=== PATIENT | female | born 1935 | race Two or more races ===

== ENCOUNTER 2019-09-02 09:18 | Emergency (ER) | payer MEDICARE, OTHER ==
[~2019-09-02] VITALS: Ht 162.6 cm; Wt 57.0 kg
[2019-09-02] MEDS ORDERED: LIDOCAINE HCL/EPINEPHRINE 1%-EPI 1:100,000 20 ML VIAL INFIL NR (09:45)
[2019-09-02] MEDS ORDERED: TETANUS, DIPHTHERIA, PERTUSSIS VAC/PF 0.5ML (>7YR OLD) IM ONE (09:45)
[2019-09-02] MEDS ORDERED: LIDOCAINE 1%/EPI 1:100,000 10 ML VIAL IJ ONE (09:45)
[2019-09-02 12:35] VITALS: BP 150/70
== END 2019-09-02 12:42 | disposition home or self-care (01) ==
LOC: ER 09:18
DX: S01.81XA Laceration without foreign body of other part of head, initial encounter (principal); W06.XXXA Fall from bed, initial encounter; Y93.89 Activity, other specified; Y92.013 Bedroom of single-family (private) house as the place of occurrence of the external cause; I10 Essential (primary) hypertension; Z23 Encounter for immunization
CPT/HCPCS: 12011; 70450; 90471; 90715; 99284; J3490

== ENCOUNTER 2023-06-01 05:55 | Emergency (ER) | payer MEDICARE, MEDICAID ==
[~2023-06-01] VITALS: Ht 160 cm; Wt 45.0 kg
[2023-06-01 06:10] VITALS: BP 162/90; PULSE 78; RESP 16; TEMP 97.2; O2SAT 100
[2023-06-01 06:31] LABS: EOSINOPHILS % 1.1 % (0.0-5.0); HEMATOCRIT. 33.1 % (36.0-48.0); HEMOGLOBIN. 10.5 g/dL (12.0-16.0); LYMPHOCYTES % 19.4 % (20.0-50.0); MEAN CORPUSCULAR HEMOGLOBIN 28.9 pg (28.0-32.0); MEAN CORPUSCULAR HGB CONC 31.8 g/dL (31.0-37.0); MEAN CORPUSCULAR VOLUME 90.7 fL (81.0-99.0); MEAN PLATELET VOLUME 8.1 fl (7.4-10.4); MONOCYTES % 10.2 % (2.0-8.0); NEUTROPHILS % 68.3 % (40.0-76.0); PLATELET 191 x1000/uL (130-400); RED BLOOD CELL COUNT 3.64 mill/uL (4.2-5.4); RED CELL DISTRIBUTION WIDTH 18.2 % (11.6-14.6); WHITE BLOOD COUNT 3.9 x1000/uL (4.5-11.0)
[2023-06-01 06:35] LABS: INR 1.1; PROTHROMBIN TIME 11.7 sec (9.6-11.0)
[2023-06-01] MEDS: ACETAMINOPHEN 325MG TABLET PO STA (07:34)
[2023-06-01 08:07] LABS: ALANINE AMINOTRANSFERASE 12 IU/L (10-49); ALBUMIN 3.9 g/dL (3.2-4.8); ASPARTATE AMINOTRANSFERASE 20 IU/L (<34); BILIRUBIN TOTAL 0.4 mg/dL (0.1-1.0); CALCIUM 8.8 mg/dL (8.7-10.4); CARBON DIOXIDE 27 mEq/L (21-32); CHLORIDE 108 mEq/L (98-107); GLUCOSE 98 mg/dL (70-105); POTASSIUM 4.8 mEq/L (3.5-5.1); PROTEIN TOTAL 6.9 g/dL (6.0-8.3); SODIUM 139 mEq/L (136-145); TROPONIN I HIGH SENSITIVITY 9 ng/L (3.0-34); UREA NITROGEN BLOOD 22 mg/dL (9-23)
== END 2023-06-01 09:56 | disposition home or self-care (01) ==
LOC: ER 06:09
DX: S01.112A Laceration without foreign body of left eyelid and periocular area, initial encounter (principal); I10 Essential (primary) hypertension; W01.0XXA Fall on same level from slipping, tripping and stumbling without subsequent striking against object, initial encounter; Y93.89 Activity, other specified; Y92.89 Other specified places as the place of occurrence of the external cause; Y99.8 Other external cause status
CPT/HCPCS: 12013; 36415; 71045; 72170; 80053; 84484; 85025; 93005; 99284

== ENCOUNTER 2023-06-13 18:10 | Inpatient (IN) | payer MEDICARE, MEDICAID ==
[~2023-06-13] VITALS: Ht 160 cm; Wt 36.9 kg
[2023-06-13] MEDS: DEXT 5%/0.9% NACL 1,000 ML IV SCH (09:21)
[~2023-06-13 18:10] MED LIST: ALPR0.25 PO; ARIP2TAB16 PO; MEMA5TAB7 PO; METH-371 PO; METO-396 PO
[2023-06-13 19:00] VITALS: BP 125/57; PULSE 88; RESP 18; TEMP 98.5
[2023-06-13 20:00] VITALS: BP 128/58; PULSE 89; RESP 19; TEMP 99.1
[2023-06-13] MEDS ORDERED: DOCUSATE SODIUM 250MG CAPSULE PO PRN (20:00)
[2023-06-13] MEDS ORDERED: ACETAMINOPHEN 325MG TABLET PO PRN (20:00)
[2023-06-13] MEDS ORDERED: IPRATROPIUM/ALBUTEROL 0.5-3(2.5)MG/3ML NEB HHN PRN (20:00)
[2023-06-13] MEDS ORDERED: GUAIFENESIN 200MG/10ML SUGAR FREE UDC PO PRN (20:00)
[2023-06-13] MEDS ORDERED: PHENYLEPHRINE HCL 0.5% 15ML NASAL SPRAY BOTHNSTRLS PRN (20:00)
[2023-06-13] MEDS ORDERED: MEMANTINE HCL 5MG TABLET PO SCH (21:00)
[2023-06-13] MEDS ORDERED: PANTOPRAZOLE SODIUM 40 MG/VIAL IV SCH (21:30)
[2023-06-13] MEDS: MEMANTINE HCL 5MG TABLET PO SCH (22:06)
[2023-06-13] MEDS: ATORVASTATIN CALCIUM 20MG TABLET PO SCH (22:06)
[2023-06-14 08:00] VITALS: BP_SYST 125; BP_SYST 127; BP_DIAS 52; BP_DIAS 54; PULSE 76; PULSE 78; RESP 17; RESP 18; TEMP 96.4; TEMP 98
[2023-06-14] MEDS ORDERED: ALPRAZOLAM 0.25 MG TABLET PO PRN (09:00)
[2023-06-14] MEDS: ASPIRIN 81MG EC TABLET PO SCH (09:11)
[2023-06-14] MEDS: PANTOPRAZOLE SODIUM 40 MG/VIAL IV SCH (09:12)
[2023-06-14] MEDS: ARIPIPRAZOLE 2MG TABLET PO SCH (09:12)
[2023-06-14] MEDS: METHIMAZOLE 5MG TABLET PO SCH (09:12)
[2023-06-14] MEDS: ENOXAPARIN 30MG/0.3ML SYR SUBCUT SCH (09:12)
[2023-06-14 12:00] VITALS: BP 131/58; PULSE 82; RESP 18; TEMP 100
[2023-06-14 16:00] VITALS: BP 129/56; PULSE 80; RESP 19; TEMP 98
[2023-06-14 16:47] LABS: BASOPHILS % 0.8 % (0.0-2.0); EOSINOPHILS % 1.2 % (0.0-5.0); HEMATOCRIT. 26.4 % (36.0-48.0); HEMOGLOBIN. 8.6 g/dL (12.0-16.0); LYMPHOCYTES % 17.1 % (20.0-50.0); MEAN CORPUSCULAR HEMOGLOBIN 28.9 pg (28.0-32.0); MEAN CORPUSCULAR HGB CONC 32.6 g/dL (31.0-37.0); MEAN CORPUSCULAR VOLUME 88.4 fL (81.0-99.0); MONOCYTES % 13.3 % (2.0-8.0); NEUTROPHILS % 67.6 % (40.0-76.0); RED BLOOD CELL COUNT 2.99 mill/uL (4.2-5.4); RED CELL DISTRIBUTION WIDTH 17.2 % (11.6-14.6); WHITE BLOOD COUNT 6.8 x1000/uL (4.5-11.0)
[2023-06-14 16:59] LABS: DIFFERENTIAL COMMENT 1
[2023-06-14 17:16] LABS: ALANINE AMINOTRANSFERASE 16 IU/L (10-49); ALBUMIN 3.3 g/dL (3.2-4.8); ASPARTATE AMINOTRANSFERASE 33 IU/L (<34); BILIRUBIN TOTAL 0.3 mg/dL (0.1-1.0); CALCIUM 8.3 mg/dL (8.7-10.4); CARBON DIOXIDE 27 mEq/L (21-32); CHLORIDE 104 mEq/L (98-107); GLUCOSE 86 mg/dL (70-105); PROTEIN TOTAL 6.1 g/dL (6.0-8.3); SODIUM 136 mEq/L (136-145); UREA NITROGEN BLOOD 17 mg/dL (9-23)
[2023-06-14 18:10] LABS: MEAN PLATELET VOLUME 8.9 fl (7.4-10.4); PLATELET 163 x1000/uL (130-400)
[2023-06-14 20:00] VITALS: BP 152/55; PULSE 88; RESP 18; TEMP 99.1
[2023-06-14] MEDS: ACETAMINOPHEN 325MG TABLET PO PRN (20:55)
[2023-06-15] MEDS: OMEPRAZOLE 20MG CAPSULE EXTENDED RELEASE PO SCH (06:14)
[2023-06-15 08:00] VITALS: BP 138/58; PULSE 83; RESP 17; TEMP 98.1
[2023-06-15] MEDS: ASPIRIN 81MG TABLET PO SCH (09:36)
[2023-06-15] MEDS: FERROUS SULFATE 325MG TABLET PO SCH (09:36)
[2023-06-15 13:33] LABS: HEMATOCRIT 27.1 % (36.0-48.0); HEMOGLOBIN 8.8 g/dL (12.0-16.0); MEAN CORPUSCULAR HEMOGLOBIN 28.3 pg (28.0-32.0); MEAN CORPUSCULAR HGB CONC 32.6 g/dL (31.0-37.0); MEAN CORPUSCULAR VOLUME 86.9 fL (81.0-99.0); PLATELET 169 x1000/uL (130-400); RED BLOOD CELL COUNT 3.12 mill/uL (4.2-5.4); RED CELL DISTRIBUTION WIDTH 16.7 % (11.6-14.6); WHITE BLOOD COUNT 5.6 x1000/uL (4.5-11.0)
[2023-06-15 14:23] LABS: CALCIUM 8.7 mg/dL (8.7-10.4); CARBON DIOXIDE 28 mEq/L (21-32); CHLORIDE 104 mEq/L (98-107); GLUCOSE 146 mg/dL (70-105); POTASSIUM 4.3 mEq/L (3.5-5.1); SODIUM 137 mEq/L (136-145); UREA NITROGEN BLOOD 23 mg/dL (9-23)
[2023-06-15] MEDS: AMLODIPINE 2.5MG TABLET PO SCH (17:51)
[2023-06-15 19:39] VITALS: BP 92/41; PULSE 89; RESP 17; TEMP 96.9
[2023-06-16 07:05] LABS: BASOPHILS % 0.6 % (0.0-2.0); EOSINOPHILS % 0.8 % (0.0-5.0); HEMOGLOBIN. 9.5 g/dL (12.0-16.0); LYMPHOCYTES % 11.8 % (20.0-50.0); MEAN CORPUSCULAR HEMOGLOBIN 28.2 pg (28.0-32.0); MEAN CORPUSCULAR HGB CONC 32.6 g/dL (31.0-37.0); MEAN CORPUSCULAR VOLUME 86.7 fL (81.0-99.0); MEAN PLATELET VOLUME 8.3 fl (7.4-10.4); MONOCYTES % 11.5 % (2.0-8.0); NEUTROPHILS % 75.3 % (40.0-76.0); PLATELET 173 x1000/uL (130-400); RED BLOOD CELL COUNT 3.35 mill/uL (4.2-5.4); RED CELL DISTRIBUTION WIDTH 16.9 % (11.6-14.6)
[2023-06-16 08:00] VITALS: BP 140/56; PULSE 95; RESP 17; TEMP 98.6
[2023-06-16 20:00] VITALS: BP 120/47; PULSE 55; RESP 17; TEMP 100
[2023-06-17 08:00] VITALS: BP 120/60; PULSE 78; RESP 17; TEMP 97.5
[2023-06-17] MEDS ORDERED: IPRATROPIUM/ALBUTEROL 0.5-3(2.5)MG/3ML NEB HHN PRN (09:45)
[2023-06-17 20:00] VITALS: BP 91/37; PULSE 91; RESP 18; TEMP 98.1
[2023-06-17 23:00] VITALS: BP 122/52; PULSE 90
[2023-06-18 08:00] VITALS: BP 105/47; PULSE 82; RESP 17; TEMP 97.7
[2023-06-18 20:15] VITALS: BP 143/63; PULSE 94; RESP 18; TEMP 97.6
[2023-06-18 22:11] LABS: HEMATOCRIT. 23.3 % (36.0-48.0); HEMOGLOBIN. 7.7 g/dL (12.0-16.0); MEAN CORPUSCULAR HGB CONC 32.8 g/dL (31.0-37.0); MEAN CORPUSCULAR VOLUME 88.2 fL (81.0-99.0); MEAN PLATELET VOLUME 8.9 fl (7.4-10.4); PLATELET 161 x1000/uL (130-400); RED BLOOD CELL COUNT 2.64 mill/uL (4.2-5.4); RED CELL DISTRIBUTION WIDTH 17.1 % (11.6-14.6); WHITE BLOOD COUNT 10.9 x1000/uL (4.5-11.0)
[2023-06-18 22:13] LABS: DIFFERENTIAL COMMENT 1
[2023-06-18 22:29] LABS: ANISOCYTOSIS 1+; PLATELET ESTIMATE NORMAL
[2023-06-18 22:35] LABS: ALANINE AMINOTRANSFERASE 67 IU/L (10-49); ALBUMIN 3.1 g/dL (3.2-4.8); ASPARTATE AMINOTRANSFERASE 92 IU/L (<34); BILIRUBIN TOTAL 0.3 mg/dL (0.1-1.0); CALCIUM 8.3 mg/dL (8.7-10.4); CARBON DIOXIDE 26 mEq/L (21-32); CHLORIDE 102 mEq/L (98-107); CREATININE 0.9 mg/dL (0.6-1.0); GLUCOSE 146 mg/dL (70-105); POTASSIUM 4.3 mEq/L (3.5-5.1); PROTEIN TOTAL 5.6 g/dL (6.0-8.3); SODIUM 134 mEq/L (136-145); UREA NITROGEN BLOOD 28 mg/dL (9-23)
[2023-06-19] MEDS: BLOOD SUGAR DIAGNOSTIC STRIP TEST SCH (00:09)
[2023-06-19 08:00] VITALS: BP 111/84; PULSE 73; RESP 17; TEMP 98.2
[2023-06-19 20:00] VITALS: BP 139/47; PULSE 75; RESP 18; TEMP 98.1
[2023-06-19] MEDS ORDERED: ARIPIPRAZOLE 2MG TABLET PO SCH (21:00)
[2023-06-19] MEDS: ARIPIPRAZOLE 2MG TABLET PO SCH (21:47)
[2023-06-20 08:00] VITALS: BP 118/42; PULSE 72; RESP 20; TEMP 96.7
[2023-06-20] MEDS ORDERED: OXYB5TAB21 PO (09:30)
[2023-06-20 20:00] VITALS: BP 117/51; PULSE 96; RESP 18; TEMP 97.9
[2023-06-20] MEDS: MELATONIN 3MG TABLET PO SCH (21:13)
[2023-06-21 08:00] VITALS: BP 130/50; PULSE 85; RESP 19; TEMP 98.2
[2023-06-21 19:00] VITALS: PULSE 71; RESP 18; TEMP 98.9
[2023-06-21 20:00] VITALS: BP 124/56; PULSE 71; RESP 18; RESP 19; TEMP 98.9
[2023-06-21] MEDS ORDERED: ALPRAZOLAM 0.25 MG TABLET PO PRN (23:15)
[2023-06-22 08:00] VITALS: BP 154/81; PULSE 78; RESP 20; TEMP 97.4
[2023-06-22 20:00] VITALS: BP 130/51; PULSE 92; RESP 19; TEMP 98.2
[2023-06-23 08:00] VITALS: PULSE 69; RESP 20; TEMP 97.2
[2023-06-23 20:00] VITALS: BP 128/48; PULSE 83; RESP 18; TEMP 97.6
[2023-06-24 08:00] VITALS: BP 150/88; PULSE 80; RESP 17; TEMP 98.3
[2023-06-24 19:38] VITALS: BP 137/80; PULSE 96; RESP 20; TEMP 98.4
[2023-06-25 06:22] LABS: BASOPHILS % 0.6 % (0.0-2.0); EOSINOPHILS % 1.3 % (0.0-5.0); HEMATOCRIT. 24.5 % (36.0-48.0); HEMOGLOBIN. 8.2 g/dL (12.0-16.0); LYMPHOCYTES % 13.5 % (20.0-50.0); MEAN CORPUSCULAR HEMOGLOBIN 27.9 pg (28.0-32.0); MEAN CORPUSCULAR HGB CONC 33.6 g/dL (31.0-37.0); MEAN CORPUSCULAR VOLUME 82.9 fL (81.0-99.0); MEAN PLATELET VOLUME 7.6 fl (7.4-10.4); MONOCYTES % 11.5 % (2.0-8.0); NEUTROPHILS % 73.1 % (40.0-76.0); PLATELET 285 x1000/uL (130-400); RED BLOOD CELL COUNT 2.95 mill/uL (4.2-5.4); RED CELL DISTRIBUTION WIDTH 16.7 % (11.6-14.6)
[2023-06-25 06:29] LABS: CARBON DIOXIDE 29 mEq/L (21-32); CHLORIDE 102 mEq/L (98-107); POTASSIUM 4.7 mEq/L (3.5-5.1); SODIUM 137 mEq/L (136-145)
[2023-06-25 06:30] LABS: CALCIUM 8.9 mg/dL (8.7-10.4)
[2023-06-25 06:35] LABS: GLUCOSE 95 mg/dL (70-105); UREA NITROGEN BLOOD 30 mg/dL (9-23)
[2023-06-25 08:00] VITALS: BP 120/50; PULSE 60; RESP 16; TEMP 97.4
[2023-06-25 20:00] VITALS: BP 144/81; PULSE 58; RESP 17; TEMP 98.2
[2023-06-26 08:00] VITALS: BP 139/50; PULSE 87; RESP 17; TEMP 98.3
[2023-06-26] MEDS: ENOXAPARIN 30MG/0.3ML SYR SUBCUT SCH (11:40)
[2023-06-26 20:00] VITALS: BP 116/47; PULSE 101; RESP 18; TEMP 100.9
[2023-06-27 08:00] VITALS: PULSE 86; RESP 17; TEMP 98.1
[2023-06-27 20:00] VITALS: BP 121/76; PULSE 67; RESP 19; TEMP 98.1
[2023-06-28 08:00] VITALS: BP 154/81; PULSE 95; RESP 19; TEMP 97.5
[2023-06-28 12:22] VITALS: BP 106/42; PULSE 83; TEMP 98.3; O2SAT 100
[2023-06-28] MEDS ORDERED: ASPI-1160 PO (13:50)
[2023-06-28] MEDS ORDERED: FERR-63 PO (13:50)
[2023-06-28] MEDS ORDERED: ATOR20TA PO (13:50)
== END 2023-06-28 14:00 | disposition home health service (06) | DRG 963 ==
PROVIDERS: ADMIT Psychiatry & Neurology Neurology; ATTEND Internal Medicine
DX: S06.89AA Other specified intracranial injury with loss of consciousness status unknown, initial encounter (principal); G92.8 Other toxic encephalopathy; S72.001A Fracture of unspecified part of neck of right femur, initial encounter for closed fracture; E46 Unspecified protein-calorie malnutrition; M62.82 Rhabdomyolysis; F03.93 Unspecified dementia, unspecified severity, with mood disturbance; Z68.1 Body mass index [BMI] 19.9 or less, adult; S72.002A Fracture of unspecified part of neck of left femur, initial encounter for closed fracture; F91.9 Conduct disorder, unspecified; I10 Essential (primary) hypertension; R29.6 Repeated falls; R32 Unspecified urinary incontinence; E05.90 Thyrotoxicosis, unspecified without thyrotoxic crisis or storm; I25.10 Atherosclerotic heart disease of native coronary artery without angina pectoris; R04.0 Epistaxis; R56.9 Unspecified convulsions; F41.9 Anxiety disorder, unspecified; R15.9 Full incontinence of feces; R47.81 Slurred speech; R74.8 Abnormal levels of other serum enzymes; Z79.82 Long term (current) use of aspirin; Z79.899 Other long term (current) drug therapy; Z91.81 History of falling; W18.30XA Fall on same level, unspecified, initial encounter; Y93.89 Activity, other specified; Y92.89 Other specified places as the place of occurrence of the external cause; Y99.8 Other external cause status; I25.9 Chronic ischemic heart disease, unspecified
CPT/HCPCS: 36415; 72192; 80048; 80053; 82962; 85025; 85027; 92523; 92610; 97110; 97112; 97162; 97167; 97530; 97535; 97542; A6261; C1893; C9113; J1650; J7042

== ENCOUNTER 2023-06-29 05:59 | Emergency (ER) | payer MEDICARE, MEDICAID ==
[~2023-06-29] VITALS: Ht 165.1 cm; Wt 45.0 kg
[~2023-06-29 05:59] MED LIST changes: +ASPI-1160 PO; +ATOR20TA PO; +FERR-63 PO; +OXYB5TAB21 PO
[2023-06-29 06:04] VITALS: TEMP 98.5; O2SAT 99
[2023-06-29 06:43] VITALS: BP 115/49; PULSE 80; RESP 18
[2023-06-29 07:13] LABS: BASOPHILS % 0.6 % (0.0-2.0); EOSINOPHILS % 0.9 % (0.0-5.0); HEMATOCRIT. 24.2 % (36.0-48.0); HEMOGLOBIN. 7.9 g/dL (12.0-16.0); MEAN CORPUSCULAR HEMOGLOBIN 27.5 pg (28.0-32.0); MEAN CORPUSCULAR HGB CONC 32.6 g/dL (31.0-37.0); MEAN CORPUSCULAR VOLUME 84.5 fL (81.0-99.0); MEAN PLATELET VOLUME 7.3 fl (7.4-10.4); MONOCYTES % 8.6 % (2.0-8.0); NEUTROPHILS % 76.9 % (40.0-76.0); PLATELET 335 x1000/uL (130-400); RED BLOOD CELL COUNT 2.86 mill/uL (4.2-5.4); RED CELL DISTRIBUTION WIDTH 17.1 % (11.6-14.6); WHITE BLOOD COUNT 6.9 x1000/uL (4.5-11.0)
[2023-06-29 07:29] LABS: CHLORIDE 105 mEq/L (98-107); POTASSIUM 4.8 mEq/L (3.5-5.1); SODIUM 140 mEq/L (136-145)
[2023-06-29 07:30] LABS: CALCIUM 8.7 mg/dL (8.7-10.4); CARBON DIOXIDE 30 mEq/L (21-32)
[2023-06-29 07:31] LABS: INR 1.1; PARTIAL THROMBOPLASTIN TIME 30.5 sec (23.4-31.0); PROTHROMBIN TIME 12.4 sec (9.6-11.0)
[2023-06-29 07:35] LABS: CREATININE 1.1 mg/dL (0.6-1.0); GLUCOSE 99 mg/dL (70-105); UREA NITROGEN BLOOD 40 mg/dL (9-23)
[2023-06-29 07:37] LABS: ALANINE AMINOTRANSFERASE 56 IU/L (10-49); ALBUMIN 3.7 g/dL (3.2-4.8); ASPARTATE AMINOTRANSFERASE 43 IU/L (<34); BILIRUBIN TOTAL 0.3 mg/dL (0.1-1.0)
[2023-06-29 07:38] LABS: PROTEIN TOTAL 7.5 g/dL (6.0-8.3)
[2023-06-29] MEDS ORDERED: TRANEXAMIC ACID 1,000MG/10ML IV ONE (07:45)
== END 2023-06-29 09:06 | disposition home or self-care (01) ==
LOC: ER 05:59
DX: R04.0 Epistaxis (principal); F03.90 Unspecified dementia, unspecified severity, without behavioral disturbance, psychotic disturbance, mood disturbance, and anxiety; I10 Essential (primary) hypertension; Z79.899 Other long term (current) drug therapy
CPT/HCPCS: 36415; 80053; 85025; 99283